=== PATIENT | male | born 1985 | race African-American/Black ===

== ENCOUNTER 2022-12-28 15:03 | Emergency (ER) | payer MEDICAID, SELFPAY ==
[2022-12-28 16:05] VITALS: BP 133/84; PULSE 100; RESP 16; TEMP 37.9; O2SAT 99; BMI 22.1
[2022-12-28 17:24] LABS: Basophils % 0.2 %; Eosinophils # 0.1 10^3/uL (0.0-0.8); Eosinophils % 0.9 %; Hematocrit 27.6 % (42.0-52.0); Hemoglobin 9.3 g/dL (11.7-16.6); Lymphocytes # 1.5 10^3/uL (0.8-4.8); Lymphocytes % 11.9 %; Mean Corpuscular HGB Conc 33.7 g/dL (30.0-36.0); Mean Corpuscular Hemoglobin 32.1 pg (28.0-34.0); Mean Corpuscular Volume 95.2 fl (80-94); Mean Platelet Volume 8.9 fL (7.4-10.4); Neutrophils # 10.06 10^3/uL (1.8-7.7); Neutrophils % 78.5 %; Nucleated Red Blood Cells % 0 %; Platelet Count 186 10^3/cmm (130-400); Red Cell Distribution Width 13.6 % (12.1-15.1); White Blood Count 12.8 10^3/uL (4.0-10.0)
[2022-12-28 17:58] LABS: Erythrocyte Sedimentation Rate 26 mm/hr (0-10)
[2022-12-28 18:02] LABS: Lactic Sepsis W/Reflex 1.4 mmol/L (0.5-2.2)
[2022-12-28 18:04] LABS: Alanine Aminotransferase 14 U/L (0-41); Albumin Level 3.6 g/dL (3.5-5.2); Alkaline Phosphatase 75 U/L (40-130); Anion Gap 12.7 (5-19); Aspartate Amino Transferase 29 U/L (0-40); Blood Urea Nitrogen 5 mg/dL (6-20); Calcium 8.7 mg/dL (8.5-10.5); Carbon Dioxide 29 mmol/L (22-29); Chloride 101 mmol/L (98-107); Globulin 3.2 g/dL (1.3-4.6); Glomerular Filtration Rate 116.2 mL/min (90-130); Glucose 95 mg/dL (65-115); Osmolality Calculated 285 mOsm/kg (285-295); Potassium 3.7 mmol/L (3.5-5.1); Sodium 139 mmol/L (136-145); Total Bilirubin 0.6 mg/dL (0.15-1.2); Total Protein 6.8 g/dL (6.6-8.7)
[2022-12-28 18:10] VITALS: BP 148/90; PULSE 99; RESP 20; O2SAT 99
--- NOTE | 2022-12-28 18:38 | XRR_ITS ---
PROCEDURE INFORMATION: Exam: XR Right Elbow Exam date and time: 12/28/2022 6:43 PM Age: 37 years old Clinical indication: Pain; Elbow; Right; Additional info: Swollen TECHNIQUE: Imaging protocol: Radiologic exam of the right elbow. Views: 1 or 2 views. COMPARISON: No relevant prior studies available. FINDINGS: Bones/joints: Fracture of the radial head which does not appear acute. No additional fractures are seen. Joint effusion present. Partially visualized intact ORIF hardware seen within the radius and ulna. Soft tissues: Soft tissue swelling at the forearm. XR/XR elbow RT 2V [id number] IMPRESSION: 1. Fracture of the radial head which does not appear acute. 2. Joint effusion present. 3. Soft tissue swelling of the forearm.
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
[2022-12-28 19:16] VITALS: BP 152/93; PULSE 92; O2SAT 99
--- NOTE | 2022-12-28 19:26 | PC.NURSE ---
Pt requesting to take narcotic pain pill. notified and approved of pt taking narcotic pain pill.
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
[2022-12-28] MEDS: iohexol 350 mg/mL 500 mL Btl (per mL) IV (21:23)
[2022-12-28 21:44] VITALS: BP 165/94; PULSE 73; RESP 16; O2SAT 100
[2022-12-28 22:56] VITALS: BP 174/100; PULSE 72; RESP 16; O2SAT 100
[2022-12-28] MEDS: cephALEXin 500 mg Capsule PO (23:04)
--- NOTE | 2022-12-29 09:53 | DCPLANNER ---
manager night had message to speak with patient about getting established with a primary care physician. manager night called phone number [phone] unable to speak with patient at this time.
== END 2022-12-28 23:11 | disposition home or self-care (01) ==
PROVIDERS: Physician Assistant; Emergency Provider Emergency Medicine
DX: Z48.00 Encounter for change or removal of nonsurgical wound dressing (principal); S52.124A Nondisplaced fracture of head of right radius, initial encounter for closed fracture; X99.1XXA Assault by knife, initial encounter
CPT/HCPCS: 36415; 71260; 73070; 74177; 80053; 83605; 85025; 85651; 86140; 87040; 99285; Q9967

== ENCOUNTER 2023-01-09 10:27 | Emergency (ER) | payer MEDICAID, SELFPAY ==
[2023-01-09 10:38] VITALS: BP 137/86; PULSE 105; RESP 16; TEMP 36.7; O2SAT 100
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
--- NOTE | 2023-01-09 14:14 | DCPLANNER ---
it security manager had message to speak with patient about getting established with a primary care physician - no answer at this time.
--- NOTE | 2023-01-13 11:59 | DCPLANNER ---
Patient was called due to no primary care physician - no answer at this time.
== END 2023-01-09 12:05 | disposition home or self-care (01) ==
PROVIDERS: Emergency Provider Emergency Medicine
DX: Z48.02 Encounter for removal of sutures (principal); L73.1 Pseudofolliculitis barbae; F99 Mental disorder, not otherwise specified
CPT/HCPCS: 99285

== ENCOUNTER 2023-01-21 10:51 | Emergency (ER) | payer MEDICAID, SELFPAY ==
[2023-01-21 11:05] VITALS: BP 158/98; PULSE 85; RESP 17; TEMP 36.6; O2SAT 100; BMI 18.6
[2023-01-21 12:27] VITALS: RESP 18; O2SAT 98
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
[2023-01-21] MEDS: neomycin-poly-bacitracin oint 28 gm 1 APPLIC TOPICAL (13:04)
--- NOTE | 2023-02-02 10:17 | DCPLANNER ---
TCM called patient due to no primary care physician - no answer at this time.
== END 2023-01-21 13:04 | disposition home or self-care (01) ==
PROVIDERS: Emergency Provider Emergency Medicine
DX: T81.33XA Disruption of traumatic injury wound repair, initial encounter (principal); X58.XXXA Exposure to other specified factors, initial encounter
CPT/HCPCS: 99283